=== PATIENT | male | born 1980 | race Caucasian/White ===

== ENCOUNTER → 2017-08-02 08:42 | Outpatient (CLI) | payer OTHER, SELFPAY ==
--- NOTE | 2017-08-02 08:47 | ECHOD_ITS ---
Reason For Study: fever, R/O SBE Procedure This was a 2D Doppler, Color Flow transthoracic echocardiogram. Exam performed in department. Left Ventricle Normal LV size. Mid cavitary false tendon noted. 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 Left ventricular systolic function is normal. The estimated ejection fraction is 65 %. Normal diastology for age. No regional wall motion abnormalities noted. Right Ventricle Normal RV size. Normal systolic function. Atria Normal left atrium. Normal right atrium. Mitral Valve Normal mitral valve. Tricuspid Valve Normal tricuspid valve. Mild (1+) tricuspid valve insufficiency. Pulmonary artery systolic pressure is 34 mmHg. Aortic Valve Bicuspid aortic valve. There is no aortic stenosis. Pulmonic Valve Normal pulmonic valve. Trivial pulmonic valve insufficiency. Great Vessels Normal aortic root. The pulmonary artery is normal size. Normal inferior vena cava. Pericardium/Pleural No pericardial effusion. MMode/2D Measurements & Calculations LVIDd: 4.7 cm IVSd: 1.0 cm LVOT diam: 2.6 cm LVIDs: 2.6 cm LVPWd: 1.1 cm LVOT area: 5.5 cm2 FS: 45.0 % Ao root diam: 3.7 cm LAV(MOD-bp): 27.6 ml Aortic Valve Planimetry: 4.3 cm2 LA dimension: 3.1 cm LAV(MOD-bp) Indexed: 15.7 ml/m2 LAV(MOD-sp2): 33.0 ml LAV(MOD-sp4): 22.8 ml LA A4 area: 10.9 cm2 RA A4 area: 13.9 cm2 Doppler Measurements & Calculations MV E max alberto: 65.9 cm/sec Lat Peak E' Alberto: 9.9 cm/sec Med Peak E' Alberto: 9.4 cm/sec MV A max alberto: 36.5 cm/sec E/E' lat: 6.7 E/E' med: 7.0 MV E/A: 1.8 Ao V2 max: 111.5 cm/sec LV V1 max: 87.8 cm/sec SV(LVOT): 93.2 ml Ao max P.0 mmHg LV V1 max P.1 mmHg Ao V2 mean: 71.9 cm/sec LV V1 mean P.5 mmHg Ao mean P.3 mmHg LV V1 mean: 58.0 cm/sec Ao V2 VTI: 20.0 cm LV V1 VTI: 16.9 cm HANNAH(I,D): 4.7 cm2 HANNAH(V,D): 4.3 cm2 PA V2 max: 112.0 cm/sec TR max alberto: 268.8 cm/sec TR max P.9 mmHg Interpretation Summary Normal LV size. Left ventricular systolic function is normal. The estimated ejection fraction is 65 %. Small VSD located in high septum measuring less than 0.5cm with left to right shunting Bicuspid aortic valve. There is no aortic stenosis. Compared to prior study, there is no significant change. Ordering Physician: Edmundo Kiran Referring Physician: Edmundo Kiran Performed By: Kathrin Jauregui RDCS, RVT
[2017-08-02 11:39] LABS: Cholesterol 132 mg/dL (200); Glucose 73 mg/dL (74-106); High Density Lipoprotein 23 mg/dL; Triglycerides 124 mg/dL; Very Low Density Lipoprotein 25 mg/dL (5-40)
== END ==
PROVIDERS: Family Provider Family Medicine; PCP Family Medicine; Visit Provider Family Medicine
DX: Q23.1 Congenital insufficiency of aortic valve (principal); Q21.0 Ventricular septal defect; R61 Generalized hyperhidrosis; R50.9 Fever, unspecified; Z13.220 Encounter for screening for lipoid disorders; Z13.1 Encounter for screening for diabetes mellitus
CPT/HCPCS: 36415; 80061; 82947; 93306

== ENCOUNTER → 2017-09-10 14:09 | Outpatient (CLI) | payer OTHER, SELFPAY ==
[2017-09-10 15:43] LABS: Absolute Lymphocyte Count 1.71 X10^3/ul (0.83-4.51); Absolute Neutrophil Count 6.4 X10^3/uL (2.0-7.7); Basophil# 0.02 X10^3/uL; Basophil% 0.2 % (0-1); Eosinophil# 0.12 X10^3/uL; Eosinophils% 1.4 % (0-5); Hematocrit 39.1 % (40-54); Hemoglobin 12.5 g/dl (13.0-16.5); Lymphocyte # 1.71 X10^3/ul (4.0); Lymphocyte % 19.5 % (19-41); Mean Corpuscular Hgb 29.1 pg (27.0-32.0); Mean Corpuscular Volume 91.1 fL (80-94); Mean Platelet Vol. 8.6 fl (6.2-12.0); Monocyte# 0.53 X10^3/uL; Neutrophil # 6.38 X10^3/uL (2.7-7.7); Neutrophil % 72.8 % (47-70); Platelet Count 328 K/mm3 (150-450); RBC Distribution Width CV 13.8 % (11.6-14.6); RBC Distribution Width SD 45.3 fl (35.1-43.9); Red Blood Count 4.29 M/mm3 (4.6-6.2); White Blood Count 8.8 K/mm3 (4.4-11.0)
[2017-09-10 15:51] LABS: POSITIVE COUNT NO; POSITIVE DIFFERENTIAL NO; POSITIVE MORPHOLOGY NO
[2017-09-10 16:15] LABS: Vitamin D,25 Hydroxy 35.4 ng/mL (29.95-100.01)
[2017-09-10 16:24] LABS: ALB/GLOB Ratio 0.8 RATIO (0.9-2.4); AST(SGOT) 31 U/L (15-37); Alanine Aminotransfer ALT/SGPT 46 U/L (16-61); Albumin, Serum 3.7 g/dL (3.2-5.0); Alkaline Phosphatase 128 U/L (45-117); Anion Gap 10 (5-15); BUN 11 mg/dL (7-18); BUN/Creat Ratio 9.2 RATIO (10-20); Calcium,Total 9.1 mg/dL (8.5-10.1); Chloride 101 mmol/L (98-107); EST Glomerular Filtration Rate 72 mL/min (>60); Est Glom Filt Rate - Afr Amer 87 mL/min (>60); Globulin 4.8 g/dL (2.2-4.2); Glucose 86 mg/dL (74-106); Potassium 4.1 mmol/L (3.5-5.1); Protein, Total 8.5 g/dL (6.4-8.2); Rheumatoid Factor < 10.0 IU/mL (<15); Sodium Level 138 mmol/L (136-145); T4 Free Direct 1.01 ng/dL (0.76-1.46); Thyroid Stim Hormone (TSH) 1.75 uIU/mL (0.358-3.74)
[2017-09-10 17:03] LABS: Erythrocyte Sedimentation Rate 41 mm/hr (0-15)
[2017-09-14 10:33] LABS: CCP IgG Antibodies 6 units (0-19); CMV Acute Antibody IgM < 30.0 AU/mL (0.0-29.9); CMV Antibody IgG < 0.60 U/mL (0.00-0.59); EBV Acute VCA IgM < 36.0 U/mL (0.0-35.9); EBV Early Antigen IgG 11.8 U/mL (0.0-8.9); EBV Nuclear Antigen IgG < 18.0 U/mL (0.0-17.9)
[2017-09-14 11:07] LABS: ANTINUCLEAR ANTIBODIES DIRECT Negative (Negative)
== END ==
PROVIDERS: Family Provider Family Medicine; PCP Family Medicine; Visit Provider Family Medicine
DX: R61 Generalized hyperhidrosis (principal); R53.83 Other fatigue; M13.0 Polyarthritis, unspecified
CPT/HCPCS: 36415; 80053; 82306; 84439; 84443; 85025; 85652; 86038; 86140; 86200; 86225; 86235; 86431; 86644; 86645; 86663; 86664; 86665

== ENCOUNTER → 2020-06-21 10:26 | Outpatient (CLI) | payer OTHER, SELFPAY ==
[2020-06-21 13:29] LABS: HIV - WCH Non-Reactive (Nonreactive); Hepatitis C Antibody Non-Reactive (Nonreactive)
[2020-06-21 20:30] LABS: Chlamydia Trachomatis by PCR Negative (Negative); Neisserai gonorrhoeae by PCR Negative (Negative); Probe Check PASS; Sample Adequacy Control PASS; Specimen Processing Control PASS
[2020-06-27 03:02] LABS: Rapid Plasmin Reagin (RPR) NONREACTIVE (NONREACTIVE)
== END ==
PROVIDERS: PCP Family Medicine; Visit Provider Family Medicine
DX: Z20.9 Contact with and (suspected) exposure to unspecified communicable disease (principal)
CPT/HCPCS: 36415; 86592; 86703; 86803; 87491; 87591

== ENCOUNTER → 2020-08-16 10:47 | Outpatient (CLI) | payer OTHER, SELFPAY ==
--- NOTE | 2020-08-16 10:55 | ECHOD_ITS ---
Reason For Study: VSD/BICUSPID AV Procedure This was a 2D Doppler, Color Flow transthoracic echocardiogram. Exam performed in department. Left Ventricle Normal LV size. small VSD noted in high septum wwith L to R flow. The estimated ejection fraction is 65 %. No evidence for diastolic dysfunction. No regional wall motion abnormalities noted. Right Ventricle Normal RV size. Normal systolic function. Atria Normal left atrium. Normal right atrium. No doppler evidence for ASD. Mitral Valve There is no mitral valve stenosis. No mitral valve insufficiency. Tricuspid Valve There is no tricuspid stenosis. Unable to estimate RV systolic pressure due to inadequate jet, pulmonary artery pressure probably normal. Aortic Valve Bicuspid aortic valve. There is no aortic stenosis. No aortic valve insufficiency. Pulmonic Valve There is no pulmonic valvular stenosis. No pulmonic valve insufficiency. Great Vessels Normal aortic root. Pericardium/Pleural No pericardial effusion. MMode/2D Measurements & Calculations LVIDd: 4.7 cm IVSd: 1.1 cm LVOT diam: 2.6 cm LVIDs: 2.4 cm LVPWd: 1.2 cm LVOT area: 5.3 cm2 RVDd: 3.2 cm FS: 48.9 % Ao root diam: 4.2 cm LAV(MOD-bp): 37.3 ml LA A4 area: 13.6 cm2 LAV(MOD-bp) Indexed: 21.2 ml/m2 LAV(MOD-sp2): 44.0 ml LAV(MOD-sp4): 31.8 ml LA dimension(2D): 3.1 cm RA A4 area: 14.1 cm2 Time Measurements MV dec time: 0.17 sec Doppler Measurements & Calculations MV E max alberto: 72.0 cm/sec Lat Peak E' Alberto: 14.8 cm/sec Med Peak E' Alberto: 9.4 cm/sec MV A max alberto: 55.2 cm/sec E/E' lat: 4.9 E/E' med: 7.7 MV E/A: 1.3 Ao V2 max: 110.4 cm/sec LV V1 max: 95.7 cm/sec SV(LVOT): 91.8 ml Ao max P.9 mmHg LV V1 max P.7 mmHg Ao V2 mean: 74.5 cm/sec LV V1 mean P.0 mmHg Ao mean P.5 mmHg LV V1 mean: 66.3 cm/sec Ao V2 VTI: 18.9 cm LV V1 VTI: 17.2 cm HANNAH(I,D): 4.8 cm2 HANNAH(V,D): 4.6 cm2 PA V2 max: 118.2 cm/sec Interpretation Summary The estimated ejection fraction is 65 %. small VSD noted in high septum wwith L to R flow Bicuspid aortic valve. No evidence for diastolic dysfunction. Ordering Physician: Magno^Edmundo^^^ Referring Physician: Edmundo Kiran Performed By: Kathrin Jauregui, SHERITA, RVT
== END ==
LOC: CVS 10:50
PROVIDERS: PCP Family Medicine; Referring Provider Family Medicine; Visit Provider Family Medicine
DX: Q23.1 Congenital insufficiency of aortic valve (principal); Q21.0 Ventricular septal defect
CPT/HCPCS: 93306

== ENCOUNTER → 2024-06-09 | Outpatient (CLI) | payer OTHER, SELFPAY ==
--- NOTE | 2024-06-09 09:38 | ECHOD_ITS ---
Version 4 Reason For Study: Bicuspid AV, VSD Procedure This was a 2D Doppler, Color Flow transthoracic echocardiogram. Exam performed in department. Left Ventricle Normal LV size. Apical false tendon noted. Small 0.6 cm perimembranous ventricular septal defect with [id number] flow with a gradient of at least 144 mmHg between LV and RV. Left ventricular systolic function is normal. The left ventricular ejection fraction is 65 %. No regional wall motion abnormalities noted. Right Ventricle Normal RV size. Normal systolic function. Atria Normal left atrium. Normal right atrium. Mitral Valve Normal mitral valve. Tricuspid Valve Normal tricuspid valve. Mild tricuspid valve insufficiency. Aortic Valve Bicuspid aortic valve. Mild focal aortic valve calcification. There is no aortic stenosis. Pulmonic Valve Normal pulmonic valve. Great Vessels Moderately dilated aortic root. The pulmonary artery is normal size. Inferior vena cava collapse with respiration. Pericardium/Pleural No pericardial effusion. MMode/2D Measurements & Calculations LVIDd: 4.9 cm IVSd: 0.66 cm LVOT diam: 2.4 cm LVIDs: 2.8 cm LVPWd: 0.90 cm LVOT area: 4.4 cm2 RVDd: 3.4 cm FS: 44.2 % asc Aorta Diam: 3.2 cm LAV(MOD-bp): 37.8 ml RVOT diam: 2.3 cm LAV(MOD-bp) Indexed: 21.4 ml/m2 LAV(MOD-sp2): 44.0 ml LAV(MOD-sp4): 30.3 ml SV(MOD-sp4): 46.1 ml LVAd ap4: 27.4 cm2 LVAd ap2: 24.7 cm2 LVLd ap4: 7.7 cm LVLd ap2: 7.2 cm SI(MOD-sp4): 26.1 ml/m2 EDV(MOD-sp4): 81.7 ml EDV(MOD-sp2): 72.4 ml EDV(sp4-el): 83.1 ml EDV(sp2-el): 71.7 ml LVAs ap4: 16.4 cm2 LVAs ap2: 13.7 cm2 LVLs ap4: 6.2 cm LVLs ap2: 6.0 cm ESV(MOD-sp4): 35.7 ml ESV(MOD-sp2): 26.8 ml ESV(sp4-el): 37.0 ml ESV(sp2-el): 26.3 ml EF(MOD-sp4): 56.4 % EF(MOD-sp2): 63.0 % EF(sp4-el): 55.5 % SV(MOD-sp2): 45.6 ml SV(sp4-el): 46.1 ml LA A4 area: 12.7 cm2 SI(MOD-sp2): 25.9 ml/m2 LA dimension(2D): 3.2 cm TAPSE: 1.9 cm RA A4 area: 12.2 cm2 Time Measurements MV dec time: 0.23 sec Doppler Measurements & Calculations MV E max alberto: 72.7 cm/sec Lat Peak E' Alberto: 11.6 cm/sec Med Peak E' Alberto: 9.6 cm/sec MV A max alberto: 59.0 cm/sec E/E' lat: 6.3 E/E' med: 7.6 MV E/A: 1.2 MV dec slope: 316.8 cm/sec2 Ao V2 max: 121.1 cm/sec LV V1 max: 76.0 cm/sec Ao max P.9 mmHg LV V1 max P.3 mmHg Ao V2 mean: 88.2 cm/sec LV V1 mean P.2 mmHg Ao mean P.3 mmHg LV V1 mean: 50.8 cm/sec Ao V2 VTI: 21.5 cm LV V1 VTI: 18.1 cm AV (velocity ratio): 0.84 HANNAH(I,D): 3.7 cm2 HANNAH(V,D): 2.7 cm2 SV(LVOT): 79.0 ml PA V2 max: 101.5 cm/sec SV(RVOT): 87.3 ml TR max alberto: 201.5 cm/sec Qp/Qs: 1.1/1.0 TR max P.2 mmHg ECHO/Echo Complete Interpretation Summary Normal LV size. Left ventricular systolic function is normal. The left ventricular ejection fraction is 65 %. Qp/Qs ratio is insignificant Bicuspid aortic valve. Moderately dilated aortic root. Recommend JESSICA for further definition of the VSD Small 0.6 cm perimembranous ventricular septal defect with [id number] flow w ith a gradient of at least 144 mmHg between LV and RV The global longitudinal strain is normal. The global longitudinal strain = -18. 3 % (normal). Ordering Physician: Jose Luis Garcia Referring Physician: Jose Luis Garcia Performed By: Gloria Pandey RDCS, RVT
[2024-06-09 10:26] LABS: ALB/GLOB Ratio 1.2 RATIO (0.9-2.4); AST(SGOT) 25 U/L (15-37); Alanine Aminotransfer ALT/SGPT 38 U/L (16-61); Albumin, Serum 4.2 g/dL (3.2-5.0); Alkaline Phosphatase 86 U/L (45-117); Anion Gap 2 (5-15); BUN 24 mg/dL (7-18); BUN/Creat Ratio 19.2 RATIO (10-20); Calcium,Total 9.4 mg/dL (8.5-10.1); Chloride 106 mmol/L (98-107); Cholesterol 243 mg/dL (200); Creatinine, Serum 1.25 mg/dL (0.70-1.30); EST Glomerular Filtration Rate 66 mL/min (>60); Est Glom Filt Rate - Afr Amer 80 mL/min (>60); Globulin 3.5 g/dL (2.2-4.2); Glucose 90 mg/dL (74-106); High Density Lipoprotein 47 mg/dL; Potassium 4.3 mmol/L (3.5-5.1); Protein, Total 7.7 g/dL (6.4-8.2); Sodium Level 137 mmol/L (136-145); Triglycerides 118 mg/dL; Very Low Density Lipoprotein 24 mg/dL (5-40)
== END | disposition home or self-care (01) ==
LOC: CVS 09:30
PROVIDERS: Referring Provider Internal Medicine Cardiovascular Disease; Visit Provider Internal Medicine Cardiovascular Disease
DX: Q23.81 Bicuspid aortic valve (principal); Q21.0 Ventricular septal defect; Z13.220 Encounter for screening for lipoid disorders
CPT/HCPCS: 36415; 80053; 80061; 93306

== ENCOUNTER → 2024-09-01 | Outpatient (CLI) | payer OTHER, SELFPAY ==
[2024-09-01 09:41] LABS: Absolute Lymphocyte Count 1.78 X10^3/uL (0.83-4.51); Basophil# 0.04 X10^3/uL; Basophil% 0.7 % (0-1); Eosinophil# 0.17 X10^3/uL; Eosinophils% 3.1 % (0-5); Hematocrit 47.7 % (40-54); Hemoglobin 15.8 g/dL (13.0-16.5); Lymphocyte # 1.78 X10^3/ul (0.83-4.51); Mean Corp Hgb Conc 33.1 g/dL (32-36); Mean Corpuscular Hgb 30.6 pg (27.0-32.0); Mean Corpuscular Volume 92.4 fL (80-94); Mean Platelet Vol. 8.7 fl (6.2-12.0); Monocyte# 0.52 X10^3/uL; Monocyte% 9.4 % (0-10); NRBC Flagged by Analyzer 0 % (0-5); Neutrophil # 3.04 X10^3/uL (2.7-7.7); Neutrophil % 54.6 % (47-70); Platelet Count 280 K/mm3 (150-450); RBC Distribution Width CV 11.6 % (11.6-14.6); RBC Distribution Width SD 39.7 fl (35.1-43.9); Red Blood Count 5.16 M/mm3 (4.6-6.2); White Blood Count 5.6 K/mm3 (4.4-11.0)
[2024-09-01 11:25] LABS: ALB/GLOB Ratio 1.7 RATIO (0.9-2.4); AST(SGOT) 31 U/L (<=37); Alanine Aminotransfer ALT/SGPT 40 U/L (<=46); Albumin, Serum 4.9 g/dL (3.5-5.0); Alkaline Phosphatase 93 U/L (40-129); Anion Gap 14 (5-15); BUN 24 mg/dL (4-19); BUN/Creat Ratio 19.8 RATIO (10-20); Calcium,Total 9.9 mg/dL (7.6-11.0); Carbon Dioxide 23.5 mmol/L (21.0-32.0); Chloride 103 mmol/L (98-108); Creatinine, Serum 1.23 mg/dL (0.70-1.20); EST Glomerular Filtration Rate 74 (>60); Globulin 2.8 g/dL (2.2-4.2); Glucose 89 mg/dL (70-99); Potassium 4.4 mmol/L (3.3-5.1); Protein, Total 7.7 g/dL (5.9-8.4); Sodium Level 140 mmol/L (133-145); Total Bilirubin 0.43 mg/dL (0.00-1.30)
[2024-09-01 11:38] LABS: Cholesterol 258 mg/dL (<=200); High Density Lipoprotein 42 mg/dL; Low Density Lipoprotein Calc. 192 mg/dL; Triglycerides 118 mg/dL; Very Low Density Lipoprotein 24 mg/dL (5-40); cholesterol:hdl ratio screen 6.14
[2024-09-01 11:46] LABS: Vitamin D,25 Hydroxy 85.2 ng/mL (30-100)
== END | disposition home or self-care (01) ==
LOC: LAB 08:53
PROVIDERS: PCP Family Medicine; Referring Provider Family Medicine; Visit Provider Family Medicine
DX: Z13.1 Encounter for screening for diabetes mellitus (principal); Z13.220 Encounter for screening for lipoid disorders; R53.83 Other fatigue
CPT/HCPCS: 36415; 80053; 80061; 82306; 84403; 84443; 85025